=== PATIENT | female | born 1950 | race Caucasian/White ===

== ENCOUNTER → 2022-07-10 08:40 | Outpatient (BNVA) | payer MEDICARE, OTHER, SELFPAY | PROVIDERS: Family Provider Family Medicine; PCP Family Medicine; Visit Provider Family Medicine | DX: Z00.00 Encounter for general adult medical examination without abnormal findings (principal); I10 Essential (primary) hypertension | CPT/HCPCS: 80053; 80061; 85025 ==

== ENCOUNTER 2022-07-20 13:44 | Outpatient (CLI) | payer MEDICARE, OTHER, SELFPAY ==
--- NOTE | 2022-07-20 14:00 | XR_ITS ---
WS: [id number] SCREENING DEXA SCAN BT Imaging CLINICAL INFORMATION: screening COMPARISON: 2015 FINDINGS: The L1-L4 bone mineral density measures 0.865 g/cm2. This corresponds to a T score score of -2.6 and Z score of -1.0. Left femoral neck bone mineral density measures 0.725 g/cm2. This corresponds to a T score of -2.2 an d Z score of -0.7. Right femoral neck bone mineral density measures 0.694 g/cm2. This corresponds to a T score -2.5of an d Z score of -1.0. Mean femoral neck bone mineral density measures 0.709 g/cm2. This corresponds to a T score of -2.4 an d Z score of -0.9. XR/XR DEXA axial skeleton* [id number] IMPRESSION: Osteoporosis lumbar spine. Osteopenia femoral necks at the upper end of the ran ge approaching osteoporosis. Patient's FRAX calculated 10 year probability for major osteoporotic fracture i s 19.5 % and osteoporotic hip fracture is 7.2%. Bone mineralization lumbar spine decreased -5.2% since 2014. Bone mineralization femoral necks decreased -14.9% since 2015.
== END 2022-07-20 13:45 | disposition home or self-care (01) ==
LOC: RAD 13:48
PROVIDERS: PCP Family Medicine; Visit Provider Family Medicine
DX: Z13.820 Encounter for screening for osteoporosis (principal); M81.0 Age-related osteoporosis without current pathological fracture
CPT/HCPCS: 77080

== ENCOUNTER 2022-07-26 13:29 | Outpatient (CLI) | payer MEDICARE, OTHER, SELFPAY ==
--- NOTE | 2022-07-26 13:36 | MM_ITS ---
WS: [id number] BILATERAL 3D TOMOSYNTHESIS DIGITAL SCREENING MAMMOGRAPHY WITH CAD CLINICAL INFORMATION: screening HISTORY: Screening mammogram. No current complaints. COMPARISON: TECHNIQUE: Bilateral CC and MLO views. FINDINGS: Scattered fibroglandular densities bilaterally. No suspicious focal mass, asymmetry, calcifications, or architectural distortion. No evidence of malignancy. Benign calcification LEFT breast. MM/[place] [id number] IMPRESSION: BI-RADS: 2-Benign FOLLOW UP: 1 Year Follow-up Recommend return to annual screening mammography.
== END 2022-07-26 13:30 | disposition home or self-care (01) ==
PROVIDERS: PCP Family Medicine; Visit Provider Family Medicine
DX: Z12.31 Encounter for screening mammogram for malignant neoplasm of breast (principal)
CPT/HCPCS: 77063; 77067

== ENCOUNTER → 2022-08-07 08:14 | Outpatient (BNVA) | payer MEDICARE, OTHER, SELFPAY | PROVIDERS: PCP Family Medicine; Visit Provider Family Medicine | DX: Z00.00 Encounter for general adult medical examination without abnormal findings (principal); E87.1 Hypo-osmolality and hyponatremia | CPT/HCPCS: 80048 ==

== ENCOUNTER → 2023-02-07 08:31 | Outpatient (BNVA) | payer MEDICARE, OTHER, SELFPAY | PROVIDERS: PCP Family Medicine; Visit Provider Family Medicine | DX: E87.1 Hypo-osmolality and hyponatremia (principal); I10 Essential (primary) hypertension | CPT/HCPCS: 80048 ==

== ENCOUNTER → 2023-07-17 08:39 | Outpatient (BNVA) | payer MEDICARE, OTHER, SELFPAY | PROVIDERS: PCP Family Medicine; Visit Provider Family Medicine | DX: I10 Essential (primary) hypertension (principal); Z00.00 Encounter for general adult medical examination without abnormal findings; M79.671 Pain in right foot | CPT/HCPCS: 80053; 80061; 84443; 85025 ==

== ENCOUNTER 2023-09-03 06:20 | Observation (INO) | payer MEDICARE, OTHER, SELFPAY ==
[2023-09-03] VITALS (13 sets, daily range): BP systolic 110–180; BP diastolic 57–105; PULSE 51–85; RESP 15–21; TEMP 36.3–37.1; O2SAT 95–98; BMI 26.6
[2023-09-03 06:43] LABS: Basophils % 0.4 %; Hematocrit 45.5 % (36-47); Lymphocytes # 1.3 10^3/uL (0.8-4.8); Lymphocytes % 11.9 %; Mean Corpuscular Hemoglobin 30.4 pg (27-33); Mean Corpuscular Volume 92.1 fl (85-98); Mean Platelet Volume 10.6 fL (7.4-10.4); Monocytes # 0.5 10^3/uL (0.2-0.9); Monocytes % 4.9 %; Neutrophils # 8.98 10^3/uL (1.8-7.7); Neutrophils % 82.6 %; Nucleated Red Blood Cells % 0 %; Platelet Count 235 10^3/cmm (157-399); Red Blood Count 4.94 10^6/uL (3.85-5.65); Red Cell Distribution Width 12.8 % (12.1-15.1); White Blood Count 10.86 10^3/uL (3.29-11.43)
--- NOTE | 2023-09-03 06:51 | ED_ITS ---
HPI - Abdominal Pain 2 General: Chief Complaint: Abdominal Pain Stated Complaint: abd pains, lower back pains Time Seen by Provider: 09/03/23 06:33 Source: patient Mode of arrival: ambulatory History of Present Illness: 73-year-old female presents emergency ro om complaining of abdominal pain periumbilical radiating to the epigastric area. Mild nausea she has vomited a couple times denies hematochezia melena hematemesis or coffee-ground emesis. She has a history of mild cystocele and uses a pessary. Denies dysuria urgency or frequency no hematuria. She is experimented moving around to different positions trying to find a composition unable to do so. No previous abdominal surgeries. She states this began after she ate something yesterday. MD elicited complaint: abdominal pain Onset (ago): hour(s) Pain Consistency: constant Location: Periumbilical Severity: mild Quality: cramping Exacerbating factors: eating Relieving factors: nothing Associated Symptoms: Reports constipation, GI cramping, nausea, poor appetite and vomiting; Denies anorexia, belching, bloating, change in bowel habits, change in stool character, chills, coffee ground emesis, diarrhea, dyspepsia, dysuria, excessive flatus, fever(s), heartburn, hematochezia, hematuria, hematemesis, fecal incontinence, loose stools, melena and syncope Review of Systems 2 Const: Denies: fever(s) or chills Card: Denies: chest pain or syncope Resp: Denies: dyspnea GI: Reports: nausea, vomiting, constipation and GI cramping; Denies: abdominal pain, hematemesis, coffee ground emesis, heartburn, diarrhea, bloating, belching, excessive flatus, fecal incontinence, change in bowel habits, change in stool character, hematochezia or melena : Denies: dysuria, urinary frequency, urinary urgency or hematuria Musc: Denies: neck pain or back pain Skin/Breast: Denies: rash PFSH ED 2 PFSH: Medical History Chronic hypertension Diagnosed at the age of 65. Well-controlled with medication managed by PMD. No pertinent past medical history Denies diabetes, asthma, hypertension, seizures, DVT/PE PCP: Dr. Almendarez Surgical History No pertinent past surgical history Family History Mother Hypertension Sister Hyperlipidemia Denies family history of Colon cancer Ovarian cancer Diabetes Heart disease Breast cancer Uterine cancer Thyroid disease Stroke Social History Smoking and tobacco/nicotine status: never used tobacco/nicotine Physical Exam 2 Const: COMMON NORMALS: no acute distress GENERAL APPEARANCE: cooperative and comfortable ORIENTATION/CONSCIOUSNESS: Yes awake, Yes oriented to person, Yes oriented to place and Yes oriented to time HENMT: COMMON NORMALS: normocephalic, atraumatic and hearing grossly normal bilaterally HEAD & SCALP: normocephalic and atraumatic Resp: COMMON NORMALS: normal respiratory effort, No retractions, No use of accessory muscles and clear to auscultation bilaterally AUSCULTATION: clear to auscultation bilaterally Cardio: COMMON NORMALS: regular rate, regular rhythm and No murmurs present (Cardio) RATE: regular rate RHYTHM: regular rhythm GI: COMMON NORMALS: Soft to palpation and No hepatosplenomegaly present A USCULTATION: Yes normoactive bowel sounds PALPATION: Yes Soft to palpation, No Tenderness to palpation present (GI), No Guarding due to palpation present (GI) and Yes No hepatosplenomegaly present Extremity: COMMON NORMALS: normal to inspection, capillary refill normal, no clubbing, cyanosis or edema, no calf tenderness and no pedal edema Neuro: SENSORIUM/ORIENTATION: Yes oriented to person, Yes oriented to place and Yes oriented to time Skin: COMMON NORMALS: no rashes or lesions noted GENERAL SKIN EXAM: no rashes or lesions noted Course 2 Vital Signs: Vital signs: Vital Signs Temperature 97.7 F 09/03/23 06:25 Pulse Rate 69 09/03/23 10:26 Respiratory Rate 20 H 09/03/23 10:26 Blood Pressure 145/79 09/03/23 10:26 Pulse Oximetry 98 09/03/23 10:26 Oxygen Delivery Me thod Room Air 09/03/23 10:26 MDM - Abdominal Pain Medical Decision Making Cystitis and acute pancreatitis. Triglycerides are pending. Will admit IV fluids pain control she is also been cultured and had 2 g Rocephin for the cystitis. Differential Diagnosis Likely abdominal pain, calculus of kidney, constipation, diverticulitis, pancreatitis and small bowel obstruction Medical Records I reviewed the patient's medical records. Lab Data I reviewed the patient's lab results. 09/03/23 06:33 09/03/23 06:33 Labs/Radiology: Radiology Impressions Abdomen/Pelvis CT 09/03/23 07:13 IMPRESSION: Mild pancreatitis. Fullness in the head of the pancreas. Laboratory Results WBC 10.86 10^3/uL (3.29-11.43) 09/03/23 06:33 RBC 4.94 10^6/uL (3.85-5.65) 09/03/23 06:33 Hgb 15.00 g/dL (11.27-16.99) 09/03/23 06:33 Hct 45.5 % (36-47) 09/03/23 06:33 MCV 92.1 fl (85-98) 09/03/23 06:33 MCH 30.4 pg (27-33) 09/03/23 06:33 MCHC 33.0 g/dL (30-55) 09/03/23 06:33 RDW 12.8 % (12.1-15.1) 09/03/23 06:33 Plt Count 235 10^3/cmm (157-399) 09/03/23 06:33 MPV 10.6 fL (7.4-10.4) H 09/03/23 06:33 Neut % (Auto) 82.6 % 09/03/23 06:33 Lymph % (Auto) 11.9 % 09/03/23 06:33 [place] % (Auto) 4.9 % 09/03/23 06:33 Eos % (Auto) 0.0 % 09/03/23 06:33 Baso % (Auto) 0.4 % 09/03/23 06:33 Neut # (Auto) 8.98 10^3/uL (1.8-7.7) H 09/03/23 06:33 Lymph # (Auto) 1.3 10^3/uL (0.8-4.8) 09/03/23 06:33 [place] # (Auto) 0.5 10^3/uL (0.2-0.9) 09/03/23 06:33 Eos # (Auto) 0.0 10^3/uL (0.0-0.8) 09/03/23 06:33 Baso # (Auto) 0.0 10^3/uL (0.0-0.1) 09/03/23 06:33 Nucleated RBC % (auto) 0 % 09/03/23 06:33 Nucleated RBCs # 0.0 /100WBC 09/03/23 06:33 Sodium 134 mmol/L (136-145) L 09/03/23 06:33 Potassium 4.2 mmol/L (3.5-5.1) 09/03/23 06:33 Chloride 97 mmol/L (98-107) L 09/03/23 06:33 Carbon Dioxide 26 mmol/L (22-29) 09/03/23 06:33 Anion Gap 15.2 (5-19) 09/03/23 06:33 BUN 16 mg/dL (8-23) 09/03/23 06:33 Creatinine 0.8 mg/dL (0.5-0.9) 09/03/23 06:33 GFR Calculation Not Reportable 09/03/23 06:33 Glucose 147 mg/dL (65-115) H 09/03/23 06:33 Calculated Osmolality 282 mOsm/kg (285-295) L 09/03/23 06:33 Calcium 10.5 mg/dL (8.5-10.5) 09/03/23 06:33 Total Bilirubin 0.5 mg/dL (0.15-1.2) 09/03/23 06:33 AST 29 U/L (0-32) 09/03/23 06:33 ALT 24 U/L (0-33) 09/03/23 06:33 Alkaline Phosphatase 75 U/L (35-105) 09/03/23 06:33 Total Protein 7.2 g/dL (6.6-8.7) 09/03/23 06:33 Albumin 4.7 g/dL (3.5-5.2) 09/03/23 06:33 Globulin 2.5 g/dL (1.3-4.6) 09/03/23 06:33 Lipase 70986 U/L (13-60) H 09/03/23 06:33 Urine Color Yellow (Yellow) 09/03/23 06:41 Urine Appearance Cloudy (CLEAR) A 09/03/23 06:41 Urine pH 5 (5-7) 09/03/23 06:41 Ur Specific [place] 1.020 (1.005-1.030) 09/03/23 06:41 Urine Protein Neg (Negative) 09/03/23 06:41 Urine Glucose (UA) Norm (Normal) 09/03/23 06:41 Urine Ketones Negative (Negative) 09/03/23 06:41 Urine Blood 2+ (Negative) H 09/03/23 06:41 Urine Nitrate Negative (Negative) 09/03/23 06:41 Urine Bilirubin Neg (Negative) 09/03/23 06:41 Urine Urobilinogen Neg mg/dL (Negative) 09/03/23 06:41 Ur Leukocyte Esterase 2+ (Negative) H 09/03/23 06:41 Urine RBC 0-4 /hpf (0-2) H 09/03/23 06:41 Urine WBC >100 /hpf (0-5) H 09/03/23 06:41 Ur Squamous Epith Cells 10-15 /hpf (0-5) H 09/03/23 06:41 Amorphous Sediment Not Reportable 09/03/23 06:41 Urine Bacteria 2+ /hpf (NONE) H 09/03/23 06:41 Urine Mucus Trace /hpf 09/03/23 06:41 All radiology interpretation(s) finalized by discharge Discharge Plan Discharge Patient Disposition: Admitted As Inpatient Clinical Impression: Cystitis, Pancreatitis Condition: Stable Prescriptions: New ciprofloxacin HCl [Cipro] 500 mg tablet 500 mg PO BID Qty: 14 0RF No Action aspirin 81 mg tablet,delayed release (DR/EC) 81 mg PO DAILY alendronate 70 mg tablet See Rx Instructions .ROUTE .COMPLEX Qty: 12 3RF Dose Instruction: TAKE 1 TABLET BY MOUTH ONCE A WEEK Rx Instructions: TAKE 1 TABLET BY MOUTH ONCE A WEEK ON SATURDAY lisinopril 20 mg tablet 20 mg PO DAILY Referrals: Shawn Almendarez MD [Primary Care Provider] - Patient Instructions: Opioid Safety, Pain Management Coding Level of Care Code ED 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
[2023-09-03 07:00] LABS: Alanine Aminotransferase 24 U/L (0-33); Albumin Level 4.7 g/dL (3.5-5.2); Alkaline Phosphatase 75 U/L (35-105); Anion Gap 15.2 (5-19); Aspartate Amino Transferase 29 U/L (0-32); Blood Urea Nitrogen 16 mg/dL (8-23); Calcium 10.5 mg/dL (8.5-10.5); Carbon Dioxide 26 mmol/L (22-29); Chloride 97 mmol/L (98-107); Globulin 2.5 g/dL (1.3-4.6); Glucose 147 mg/dL (65-115); Osmolality Calculated 282 mOsm/kg (285-295); Potassium 4.2 mmol/L (3.5-5.1); Sodium 134 mmol/L (136-145); Total Bilirubin 0.5 mg/dL (0.15-1.2); Total Protein 7.2 g/dL (6.6-8.7)
--- NOTE | 2023-09-03 07:13 | CTR_ITS ---
PROCEDURE INFORMATION: Exam: CT Abdomen And Pelvis Without Contrast Exam date and time: 09/03/2023 7:25 AM Age: 73 years old Clinical indication: Abdominal pain; Localized; Other: Lower and back pain TECHNIQUE: Imaging protocol: Computed tomography of the abdomen and pelvis without contrast. Radiation optimization: All CT scans at this facility use at least one of these dose optimization techniques: automated exposure control; mA and/or kV adjustment per patient size (includes targeted exams where dose is matched to clinical indication); or iterative reconstruction. REPORTING DATA: Count of CT and Cardiac NM exams in prior 12 months: This patient has received 0 known CTs and 0 known cardiac nuclear medicine studies in the 12 months prior to the current study. COMPARISON: CT abdomen pelvis w con* [id number] 06/05/2018 1:14 PM RADIATION DOSE METRICS: Total DLP (mGy-cm): 604.85 FINDINGS: Tubes, catheters and devices: Pessary. Diaphragm: Moderate hiatal hernia. Liver: Normal. No mass. Gallbladder and bile ducts: Cholecystectomy. Pancreas: There is mild edema of the head of the pancreas with mild adjacent stranding, mild pancreatitis is suspected. The possibility of a pancreatic head mass exists given the fullness. Spleen: Widespread calcified granuloma within the spleen. Adrenal glands: Normal. No mass. Kidneys and ureters: Normal. No hydronephrosis. Stomach and bowel: Diverticulosis without evidence of diverticulitis. Appendix: No evidence of appendicitis. Intraperitoneal space: Unremarkable. No free air. No significant fluid collection. Vasculature: Unremarkable. No abdominal aortic aneurysm. Lymph nodes: Calcified granuloma and calcified lymph nodes in the left lung. Urinary bladder: Unremarkable as visualized. Reproductive: Unremarkable as visualized. Bones/joints: Unremarkable. No acute fracture. Soft tissues: Unremarkable. CT/CT abdomen pelvis con [id number] IMPRESSION: Mild pancreatitis. Fullness in the head of the pancreas.
[2023-09-03 07:27] LABS: Urine Appearance Cloudy (CLEAR); Urine Color Yellow (Yellow); pH Urine 5 (5-7)
[2023-09-03 07:28] LABS: Add Urine Culture? No; Add Urine Microscopic? YES; Bacteria Urine 2+ /hpf; Bilirubin Urine Neg (Negative); Blood Urine 2+ (Negative); Glucose Urine UA Norm (Normal); Ketones Urine Negative (Negative); Leukocyte Esterase Urine 2+ (Negative); Mucus Urine TRACE /hpf; Nitrate Urine Negative (Negative); Protein Urine Neg (Negative); RBC Urine 0-4 /hpf (0-2); Urobilinogen Urine Neg (Negative); WBC Urine >100 /hpf (0-5)
[2023-09-03] MEDS: sodium chloride 0.9% 1,000 ML 999 ML IV (08:34)
[2023-09-03] MEDS: ondansetron 2 mg/ML SDV 2 mL 4 MG IVP (08:35)
[2023-09-03] MEDS: ketorolac 30 mg/mL INJ IVP (08:37)
[2023-09-03] MEDS: cefTRIAXone 2,000 MG in sodium chloride 0.9% (plus) 50 ML 100 MG IV (09:15)
[2023-09-03 10:11] LABS: Lipase 10380 U/L (13-60)
[2023-09-03] MEDS: sodium chlor 0.9% + KCl 20 mEq 20 MEQ/1,000 ML BAG 125 MEQ IV (10:50)
[2023-09-03 11:03] LABS: Triglycerides 102 mg/dL (0-150)
--- NOTE | 2023-09-03 11:57 | P.HP_ITS ---
Providers/Chief Complaint 2 Admitting Physician: Heather Olivas MD Primary Care Provider: Shawn Almendarez MD Chief Complaint: abd pains, lower back pains History of Present Illness Shwetha Garcia (Cathy) is a 73 year old female without significant past medical history presented today with chief complaint of abdominal pain and nausea vomiting. Patient stating that after Freddy dinner she started having recurrent nausea vomiting abdominal pain, total she also had 2-3 episode of emesis. She does not drink alcohol, non-smoker. No previous history of cancer. She is not diabetic. No recent use of antibiotics or change of antihypertensive regimen. Her pain is mostly concentrated in the epigastric region. Review of Systems 2 Const: Denies: fever(s) Eyes: Denies: change in vision ENMT: Denies: throat pain Card: Denies: chest pain Resp: Denies: dyspnea GI: Reports: abdominal pain and nausea : Denies: flank pain Musc: Denies: neck pain Skin/Breast: Denies: rash Neuro: Denies: headache(s) Medications/Allergies Home Medications Medication Instructions Recorded Confirmed Last Taken Type aspirin 81 mg tablet,delayed 81 mg PO DAILY 12/27/21 09/03/23 09/02/23 History release alendronate 70 mg tablet See Rx Instructions .Route 07/17/23 09/03/23 08/12/23 Rx .COMPLEX #12 tabs lisinopril 20 mg tablet 20 mg PO DAILY 09/03/23 09/03/23 09/02/23 History Allergies Allergy/AdvReac Type Severity Reaction Status Date / Time No Known Allergies Allergy Verified 07/09/23 15:00 PFSH Acute 2 PFSH: Medical History Chronic hypertension Diagnosed at the age of 65. Well-controlled with medication managed by PMD. No pertinent past medical history Denies diabetes, asthma, hypertension, seizures, DVT/PE PCP: Dr. Almendarez Surgical History No pertinent past surgical history Family History Mother Hypertension Sister Hyperlipidemia Denies family history of Colon cancer Ovarian cancer Diabetes Heart disease Breast cancer Uterine cancer Thyroid disease Stroke Social History Smoking and tobacco/nicotine status: never used tobacco/nicotine Vitals/I&O/Wt Last Vital Signs Temp 97.7 F 09/03/23 06:25 Pulse 51 L 09/03/23 11:31 Resp 20 H 09/03/23 10:26 BP 133/74 09/03/23 11:31 Pulse Ox 96 09/03/23 11:31 O2 Del Method Room Air 09/03/23 11:09 09/02/23 09/03/23 09/03/23 22:59 06:59 14:59 Intake Total 1050 / 1050 Balance 1050 / 1050 Weight last 48 hrs Weight 70.307 kg Physical Exam 2 Narrative: Patient is awake and alert Pleasant and cooperative Euvolemic S1, S2 Currently on room air Mild epigastric tenderness No right upper quadrant tenderness GCS 15 Pleasant and cooperative Data 09/03/23 06:33 09/03/23 06:33 A&P Assessment and plan (1) Pancreatitis: (2) Pancreas head injury: Plan Mild pancreatitis Etiology unknown Head of the pancreas swelling Renal cancer Will request tumor marker and MRI head Patient is not a diabetic, does not drink alcohol, no previous history of cancer Keep her on clear liquids No active signs of bowel obstruction Full code Opioids Continue IV fluid hydration DVT prophylaxis added No history of gallstones Attestations 2 Medical Necessity Statement*: Anticipate discharge within 48 hours Diagnoses Pancreatitis K85.90 Pancreas head injury S36.200A
--- NOTE | 2023-09-03 12:14 | MRR_ITS ---
PROCEDURE INFORMATION: Exam: MR Abdomen Without Contrast Exam date and time: 09/03/2023 5:33 PM Age: 73 years old Clinical indication: Swelling pancreatic head TECHNIQUE: Imaging protocol: Magnetic resonance imaging of the abdomen without contrast. COMPARISON: CT abdomen pelvis con [id number] 09/03/2023 7:25 AM FINDINGS: Liver: No acute findings. Gallbladder and bile ducts: Unremarkable. No stones. No ductal dilation. Pancreas: Peripancreatic inflammatory changes around the head/neck. No discrete mass identified. No ductal dilatation. Spleen: No splenomegaly. Adrenal glands: No mass. Kidneys and ureters: No hydronephrosis. Stomach and bowel: Visualized stomach and intestines are unremarkable. Intraperitoneal space: No free fluid. Vasculature: No abdominal aortic aneurysm. Bones/joints: Unremarkable. Soft tissues: Unremarkable. MR/MR MRCP [id number] IMPRESSION: Pancreatitis without discrete lesion/mass identified. Consider repeat contrast-enhanced exam after resolution of pancreatitis to ensure no underlying obscured lesion if there remains concern.
[2023-09-03 12:42] LABS: D Dimer 4.58 ug/mLFEU (0-0.59)
[2023-09-03 13:06] LABS: Cancer Antigen 19 9 36.13 U/mL (0-35)
[2023-09-03] MEDS: dextrose 5%-lactated ringers 1,000 ML 100 ML IV ×2 (13:18→23:14)
[2023-09-03] MEDS: enoxaparin 40 mg/0.4 mL Syringe SUBCUT (13:19)
[2023-09-04] VITALS: BP 107/68; PULSE 80; RESP 17; TEMP 36.8; O2SAT 91
[2023-09-04 04:00] VITALS: BP 99/63; PULSE 71; RESP 17; TEMP 36.8; O2SAT 92
[2023-09-04 05:09] LABS: Basophils % 0.4 %; Eosinophils # 0.1 10^3/uL (0.0-0.8); Eosinophils % 1.3 %; Hematocrit 38.5 % (36-47); Lymphocytes # 1.5 10^3/uL (0.8-4.8); Lymphocytes % 22.1 %; Mean Corpuscular HGB Conc 31.7 g/dL (30-55); Mean Corpuscular Hemoglobin 30.2 pg (27-33); Mean Corpuscular Volume 95.3 fl (85-98); Mean Platelet Volume 11.1 fL (7.4-10.4); Monocytes # 0.6 10^3/uL (0.2-0.9); Neutrophils # 4.69 10^3/uL (1.8-7.7); Neutrophils % 67.9 %; Nucleated Red Blood Cells % 0 %; Platelet Count 169 10^3/cmm (157-399); Red Blood Count 4.04 10^6/uL (3.85-5.65); Red Cell Distribution Width 13.1 % (12.1-15.1); White Blood Count 6.91 10^3/uL (3.29-11.43)
[2023-09-04 05:38] LABS: Alanine Aminotransferase 14 U/L (0-33); Albumin Level 3.3 g/dL (3.5-5.2); Alkaline Phosphatase 57 U/L (35-105); Anion Gap 9.2 (5-19); Aspartate Amino Transferase 20 U/L (0-32); Blood Urea Nitrogen 9 mg/dL (8-23); Calcium 8.4 mg/dL (8.5-10.5); Carbon Dioxide 26 mmol/L (22-29); Chloride 105 mmol/L (98-107); Globulin 2.1 g/dL (1.3-4.6); Glucose 143 mg/dL (65-115); Osmolality Calculated 283 mOsm/kg (285-295); Potassium 4.2 mmol/L (3.5-5.1); Sodium 136 mmol/L (136-145); Total Bilirubin 0.5 mg/dL (0.15-1.2); Total Protein 5.4 g/dL (6.6-8.7)
[2023-09-04 07:03] VITALS: BP 123/78; PULSE 83; RESP 16; TEMP 36.8; O2SAT 91
[2023-09-04] MEDS: cefTRIAXone 1,000 MG in sodium chloride 0.9% (plus) 50 ML 100 MG IV (08:24)
--- NOTE | 2023-09-04 10:12 | PM.DCS ---
Discharge Providers Date of Admission: 09/03/23 11:16 Date of Discharge: September 04, 2023 Attending Provider at Admission: Heather Olivas MD Attending Provider at Discharge: Heather Olivas MD Primary Care Provider: Shawn Almendarez MD Diagnoses at Discharge Discharge Diagnosis (1) Pancreatitis: Status: Acute (2) Pancreas head injury: Status: Acute Reason for Visit Reason for Visit: abd pains, lower back pains Hospital Course Hospital Course 73-year-old female who was admitted for management evaluation of pancreatitis, no inciting factor was found during this hospitalization, patient does not smoke or drink alcohol, no gallstones, I requested CA 19 9 marker which was slightly high, requested MRCP that did not show any mass or any signs of malignancy however I will like patient to follow-up with a licensed practical vocational nurse for another CT scan to keep an eye to rule out the etiology for her pancreatitis. I do believe malignancy still needs to be ruled out, this was conveyed frankly to the patient, she wants to follow-up at [facility] gastroenterology service. She is tolerating diet, I will give her antibiotics for her UTI. Physical Exam Narrative: Awake and alert Signs of dehydration improving No active emesis S1, S2 GCS 15 Abdomen soft EOMI, PERRLA Discharge Data Studies Completed and Pending Completed Studies During Hospitalization Category Date Time Status CT abdomen pelvis wo con [id number] Stat Cat Scan 09/03/23 07:13 Completed MR MRCP [id number] Routine MRI 09/03/23 12:14 Completed Pending at discharge Category Date Time Status Blood Cultures ([facility]) Routine Lab 09/03/23 09:46 Received Blood Cultures ([facility]) Routine Lab 09/03/23 09:50 Received Radiology Impressions Abdomen/Pelvis CT 09/03/23 07:13 IMPRESSION: Mild pancreatitis. Fullness in the head of the pancreas. ADDENDUM: 09/04/23 0813 ADDENDUM: The purpose of this addendum is to repair a speech recognition tray line supervisor error. The gallbladder demonstrates a small stone. Cholelithiasis is present. The patient has not had a cholecystectomy. No evidence of cholecystitis and the appearance is similar what was seen on 06/05/2018. Cholangiopancreatography MRI 09/03/23 12:14 IMPRESSION: Pancreatitis without discrete lesion/mass identified. Consider repeat contrast-enhanced exam after resolution of pancreatitis to ensure no underlying obscured lesion if there remains concern. Laboratory Results WBC 6.91 10^3/uL (3.29-11.43) 09/04/23 04:28 RBC 4.04 10^6/uL (3.85-5.65) 09/04/23 04:28 Hgb 12.20 g/dL (11.27-16.99) 09/04/23 04:28 Hct 38.5 % (36-47) 09/04/23 04:28 MCV 95.3 fl (85-98) 09/04/23 04:28 MCH 30.2 pg (27-33) 09/04/23 04:28 MCHC 31.7 g/dL (30-55) 09/04/23 04:28 RDW 13.1 % (12.1-15.1) 09/04/23 04:28 Plt Count 169 10^3/cmm (157-399) 09/04/23 04:28 MPV 11.1 fL (7.4-10.4) H 09/04/23 04:28 Neut % (Auto) 67.9 % 09/04/23 04:28 Lymph % (Auto) 22.1 % 09/04/23 04:28 [place] % (Auto) 8.0 % 09/04/23 04:28 Eos % (Auto) 1.3 % 09/04/23 04:28 Baso % (Auto) 0.4 % 09/04/23 04:28 Neut # (Auto) 4.69 10^3/uL (1.8-7.7) 09/04/23 04:28 Lymph # (Auto) 1.5 10^3/uL (0.8-4.8) 09/04/23 04:28 [place] # (Auto) 0.6 10^3/uL (0.2-0.9) 09/04/23 04:28 Eos # (Auto) 0.1 10^3/uL (0.0-0.8) 09/04/23 04:28 Baso # (Auto) 0.0 10^3/uL (0.0-0.1) 09/04/23 04:28 Nucleated RBC % (auto) 0 % 09/04/23 04:28 Nucleated RBCs # 0.0 /100WBC 09/04/23 04:28 D-Dimer 4.58 ug/mLFEU (0-0.59) H 09/03/23 06:33 Sodium 136 mmol/L (136-145) 09/04/23 04:28 Potassium 4.2 mmol/L (3.5-5.1) 09/04/23 04:28 Chloride 105 mmol/L (98-107) 09/04/23 04:28 Carbon Dioxide 26 mmol/L (22-29) 09/04/23 04:28 Anion Gap 9.2 (5-19) 09/04/23 04:28 BUN 9 mg/dL (8-23) 09/04/23 04:28 Creatinine 0.7 mg/dL (0.5-0.9) 09/04/23 04:28 GFR Calculation Not Reportable 09/04/23 04:28 Glucose 143 mg/dL (65-115) H 09/04/23 04:28 Calculated Osmolality 283 mOsm/kg (285-295) L 09/04/23 04:28 Calcium 8.4 mg/dL (8.5-10.5) L 09/04/23 04:28 Magnesium 2.0 mg/dL (1.7-2.3) 09/04/23 04:28 Total Bilirubin 0.5 mg/dL (0.15-1.2) 09/04/23 04:28 AST 20 U/L (0-32) 09/04/23 04:28 ALT 14 U/L (0-33) 09/04/23 04:28 Alkaline Phosphatase 57 U/L (35-105) 09/04/23 04:28 C-Reactive Protein 3.0 mg/L (0.0-4.9) 09/04/23 04:28 Total Protein 5.4 g/dL (6.6-8.7) L D 09/04/23 04:28 Albumin 3.3 g/dL (3.5-5.2) L 09/04/23 04:28 Globulin 2.1 g/dL (1.3-4.6) 09/04/23 04:28 Triglycerides 102 mg/dL (0-150) 09/03/23 06:33 Lipase 73448 U/L (13-60) H 09/03/23 06:33 CA 19-9 Antigen 36.13 U/mL (0-35) H 09/03/23 12:26 Urine Color Yellow (Yellow) 09/03/23 06:41 Urine Appearance Cloudy (CLEAR) A 09/03/23 06:41 Urine pH 5 (5-7) 09/03/23 06:41 Ur Specific [place] 1.020 (1.005-1.030) 09/03/23 06:41 Urine Protein Neg (Negative) 09/03/23 06:41 Urine Glucose (UA) Norm (Normal) 09/03/23 06:41 Urine Ketones Negative (Negative) 09/03/23 06:41 Urine Blood 2+ (Negative) H 09/03/23 06:41 Urine Nitrate Negative (Negative) 09/03/23 06:41 Urine Bilirubin Neg (Negative) 09/03/23 06:41 Urine Urobilinogen Neg mg/dL (Negative) 09/03/23 06:41 Ur Leukocyte Esterase 2+ (Negative) H 09/03/23 06:41 Urine RBC 0-4 /hpf (0-2) H 09/03/23 06:41 Urine WBC >100 /hpf (0-5) H 09/03/23 06:41 Ur Squamous Epith Cells 10-15 /hpf (0-5) H 09/03/23 06:41 Amorphous Sediment Not Reportable 09/03/23 06:41 Urine Bacteria 2+ /hpf (NONE) H 09/03/23 06:41 Urine Mucus Trace /hpf 09/03/23 06:41 Vitals Last Vital Signs Temp 98.2 F 09/04/23 07:03 Pulse 83 09/04/23 07:03 Resp 16 09/04/23 07:03 BP 123/78 09/04/23 07:03 Pulse Ox 91 09/04/23 07:03 O2 Del Method Room Air 09/04/23 07:03 Discharge Plan Discharge Patient Disposition: Home Condition: Stable Prescriptions: New tramadol 100 mg capsule,ER biphase 24 hr 25-75 100 mg PO DAILY Qty: 7 0RF tramadol 100 mg tablet extended release 24 hr 100 mg PO DAILY PRN (Reason: abdominal pain) Qty: 7 0RF levofloxacin 750 mg tablet 750 mg PO DAILY 5 Days Qty: 5 0RF ondansetron HCl 4 mg tablet 4 mg PO DAILY PRN (Reason: nausea and vomiting) 1 Days Qty: 10 0RF Continued aspirin 81 mg tablet,delayed release (DR/EC) 81 mg PO DAILY alendronate 70 mg tablet See Rx Instructions .ROUTE .COMPLEX Qty: 12 3RF Dose Instruction: TAKE 1 TABLET BY MOUTH ONCE A WEEK Rx Instructions: TAKE 1 TABLET BY MOUTH ONCE A WEEK ON SATURDAY lisinopril 20 mg tablet 20 mg PO DAILY Discharge Orders: Discharge Order (Routine); Ordered 09/04/23 Ordered By: Heather Olivas Other Ambulatory Orders: CT abdomen pelvis w con* [id number] (Routine) Timeframe: 3 [address] Facility: [facility] - Location: [facility] Ordered By: Heather Olivas Referrals: Marco Nunez MD [Referring] - 1 week (Pancreatic head swelling) Shawn Almendarez MD [Primary Care Provider] - 09/11/23 11:30 am Patient Instructions: Opioid Safety, Pain Management Discharge Attestations Time Spent in Discharge Care*: greater than 30 min Quality Metrics Clinical Quality Measures [ No reported AMI, CVA or VTE this stay] Coding Level of Care Code Acute Code for Chg Fwd Diagnoses Pancreatitis K85.90 Pancreas head injury S36.200A
[2023-09-04 10:30] VITALS: BP 123/78; PULSE 83; RESP 16; TEMP 36.8; O2SAT 91
[2023-09-04 10:56] VITALS: PULSE 103; RESP 16; O2SAT 96
--- NOTE | 2023-09-04 11:06 | PC.CHAP ---
Pastoral Care Encounter/Spiritual Assessment Type of Contact [] Declined software sales manager visit [] Patient/Family/Request visit [] Outpatient visit [] Follow-up visit [] Physician referral [] Code/Alert [x] Routine visit [] Staff referral [] Actively dying [] Patient sleeping [x] Family support [] [] Out of room [] Palliative care [] [] Receiving care in room [] Pre-surgical visit [] Trauma [] Long length of stay [] ICU visit [] Other: Relational/Emotional Strength [x] Patient feels connected with others/family/visitors/staff [] Distress [] Loneliness/isolation [] Abandonment Spirituality of Patient [] Person of Lenore [] Attends Jehovah'S Witness of their [place] [] Believes in Prayer [] Reads Bible or Caodaism materials [] There are Spiritual issues to be addressed Quality Assurance Auditor Interventions [x] Prayer [x] Active listening [] Non-anxious presence [] Spiritual/emotional support [] Crisis/trauma care [] Spiritual counseling [] Bereavement support [] Provided bereavement packet [] Provided Bible/devotional materials [] Provided toy/stuffed animal, coloring book to patient or family member [] Provided Communion [] Anointing/[place] [] Salvation [] Completed spiritual assessment [] Other: Impact on Illness or Injury [] Angry [] Fearful [] Anxious [] Often cries [] Exhaustion [] Unable to work [] Unable to attend restoration [] Unable to walk/stand [] Unable to read [] Unable to drive [] Unable to eat/drink [] Unable to sleep [] Unable to be with family [] Patient intubated [] Other: Summary Time spent with patient 10 min
[2023-09-04 12:00] VITALS: BP 123/78; PULSE 83; RESP 16; TEMP 36.8; O2SAT 91
== END 2023-09-04 12:35 | disposition home or self-care (01) ==
LOC: ER 10:37 → MEDSURG 11:33
PROVIDERS: Admitting Provider Internal Medicine; Emergency Provider Family Medicine; PCP Family Medicine; Visit Provider Internal Medicine
DX: K85.90 Acute pancreatitis without necrosis or infection, unspecified (principal); S36.200A Unspecified injury of head of pancreas, initial encounter; X58.XXXA Exposure to other specified factors, initial encounter; K80.20 Calculus of gallbladder without cholecystitis without obstruction; Z79.82 Long term (current) use of aspirin; I10 Essential (primary) hypertension; Z85.528 Personal history of other malignant neoplasm of kidney
CPT/HCPCS: 36415; 51798; 74176; 74181; 80053; 81001; 83690; 83735; 84478; 85025; 85378; 86140; 86301; 87040; 96365; 96366; 96372; 96375; 99285; G0378; J0696; J1650; J1885; J2405; J3480; J7030; J7121

== ENCOUNTER → 2023-09-11 12:36 | Outpatient (BNVA) | payer MEDICARE, SELFPAY | PROVIDERS: PCP Family Medicine; Visit Provider Family Medicine | DX: K85.90 Acute pancreatitis without necrosis or infection, unspecified (principal) | CPT/HCPCS: 80053; 83690 ==

== ENCOUNTER → 2024-07-16 08:37 | Outpatient (BNVA) | payer MEDICARE, OTHER, SELFPAY | PROVIDERS: PCP Family Medicine; Visit Provider Family Medicine | DX: Z00.00 Encounter for general adult medical examination without abnormal findings (principal); I10 Essential (primary) hypertension | CPT/HCPCS: 80053; 80061; 83690; 85025 ==

== ENCOUNTER 2024-07-29 14:38 | Outpatient (CLI) | payer MEDICARE, OTHER, SELFPAY ==
--- NOTE | 2024-07-29 15:00 | XR_ITS ---
WS: [email or web address] SCREENING DEXA SCAN [employer] CLINICAL INFORMATION: med f/u COMPARISON: 2021 FINDINGS: The L1-L4 bone mineral density measures 1.031 g/cm2. This corresponds to a T score score of -1.2 and Z score of 0.3. Left femoral neck bone mineral density measures 0.757 g/cm2. This corresponds to a T score of -2.0 an d Z score of -0.4. Right femoral neck bone mineral density measures 0.681 g/cm2. This corresponds to a T score -2.6of an d Z score of -1.0. Mean femoral neck bone mineral density measures 0.719 g/cm2. This corresponds to a T score of -2.3 an d Z score of -0.7. XR/XR DEXA axial skeleton* [id number] IMPRESSION: Osteopenia lumbar spine. Osteopenia femoral necks approaching osteoporosis. Patient's FRAX calculated 10 year probability for major osteoporotic fracture i s 24.3% and osteoporotic hip fracture is 13.3%. Bone mineral density lumbar spine increased 19.2% Bone mineral density femoral necks increased 1.4%
== END 2024-07-29 14:39 | disposition home or self-care (01) ==
LOC: RAD 14:39
PROVIDERS: PCP Family Medicine; Visit Provider Family Medicine
DX: Z13.820 Encounter for screening for osteoporosis (principal); M81.0 Age-related osteoporosis without current pathological fracture; M85.80 Other specified disorders of bone density and structure, unspecified site
CPT/HCPCS: 77080

== ENCOUNTER → 2025-07-20 08:42 | Outpatient (BNVA) | payer MEDICARE, OTHER, SELFPAY | PROVIDERS: PCP Family Medicine; Visit Provider Family Medicine | DX: I10 Essential (primary) hypertension (principal); K85.90 Acute pancreatitis without necrosis or infection, unspecified | CPT/HCPCS: 80053; 80061; 85025 ==